=== PATIENT | male | born 1975 | race Two or more races ===

== ENCOUNTER 2025-05-14 10:55 | Outpatient (REF) | payer OTHER, SELFPAY | END 2025-05-14 10:56 | disposition home or self-care (01) | LOC: HO.LAB 10:55 | PROVIDERS: PCP Physician Assistant Medical; Visit Provider Urology | DX: K46.9 Unspecified abdominal hernia without obstruction or gangrene (principal) | CPT/HCPCS: 87086 ==

== ENCOUNTER 2025-05-14 10:55 | Outpatient (AMB) | payer OTHER, SELFPAY ==
--- OUTSIDE RECORDS SUMMARY | 2025-05-12 16:15 | XMS_ITS | Encounter Summary ---
Author Organization [facility] Address [address] [place] [address] Care Team Providers Care Book Store Associate Name Role Phone Refugio Estrella Primary Care Provider [phone] Reason for Referral * Imaging (Routine) - Pending Review Specialty Diagnoses / Procedures Referred By Edwina hwang Referred To Contact Radiology Diagnoses Hernia of fascia Procedures CT Abdomen Pelvis w Contrast Gonzalo Pollock DO [address] [address] Phone: tel: fax: [facility] [address] [place] [address] Phone: tel: Referral ID Status Reason Start Date Expiration Date V isits Requested Visits Authorized [id number] Pending Review 05/12/2025 05/12/2026 1 1 Reason for Visit * Reason Comments Hernia * Consultation (Routine) - Authorized Specialty Diagnoses / Procedures Referred By Edwina hwang Referred To Contact General Surgery Diagnoses Hernia of fascia Refugio Estrella PA [address] [place] [place] [address] Phone: tel: fax: Gonzalo Pollock DO [address] [address] Phone: tel: fax: Referral ID Status Reason Start Date Expiration Date Visits Requested Visits Authorized [id number] Authorized Specialty Services Required 06/11/2024 06/09/2025 6 6 Encounter Details Date Type Department Care Team (Late st Contact Info) Description 05/12/2025 4:15 PM EDT Consult General Surgery - [place] [address] [place] [address] Gonzalo Pollock, DO [address] [place] [address] Hernia of fascia Social History Tobacco Use Types Packs/Day Years Used Date Smoking Tobacco: Former Cigarettes 0.1 9.9 0 10/29/1996 - 09/28/2006 Smokeless Tobacco: Never Alcohol Use Standard Drinks/Week Comments Yes 0 (1 standard drink = 0.6 oz pur e alcohol) occ Housing Instability Answer Date Recorde d Are you worried that in the next 2 months you may not have stable housing? No 02/20/2025 Food Access & Nutrition Answer Date Rec orded Do you have access to a vari ety of food including fruits and vegetables? Yes 02/20/2025 Health Literacy Answer Date Recorded How often do you need to hav e someone help you when you read instructions, pamphlets, or other written material from your doctor or pharmacy? Never 02/20/2025 Caregiver: How often do you need to have someone help you when you read instructions, pamphlets, or other written material from your doctor or pharmacy? Not on file 02/20/2025 Financial Risk Answer Date Recorded How hard is it for you to pa y for the very basics like food, housing, medical care, and air conditioning / heating? Not very hard 02/20/2025 Transportation Answer Date Recorded Has the lack of transportati on kept you from meetings, work, or from getting things needed for daily living? No Has the lack of transportati on kept you from medical appointments or from getting medications? No 02/20/2025 Social Isolation Answer Date Recorded How often do you feel lonely or isolated from th ose around you? Never 02/20/2025 Food Risk Answer Date Recorded Within the past 12 months we worried whether our food would run out before we got money to buy more. Never true 02/20/2025 Within the past 12 months th e food we bought just didn't last and we didn't have money to get more. Never true 02/20/2025 Dependent Care Answer Date Recorded Do you need help finding or paying for care for your loved ones. For example, child care cook or elderly care for an older adult? No 02/20/2025 Employment and Income Answer Date Recor ded During the last four weeks, have you been actively looking for work? No 02/20/2025 Living Situation Answer Date Recorded What is your living situation? 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 Not on file Not on file Not on file documented as of this encounter Last Filed Vital Signs Vital Sign Reading Time Taken Comments Blood Pressure 114/77 05/12/2025 4:03 PM EDT Pulse 85 05/12/2025 4:03 PM EDT Temperature 36.3 C (97.3 F) 05/12/2025 4:03 PM EDT Respiratory Rate - - Oxygen Saturation - - Inhaled Oxygen Concentration - - Weight 115 kg (253 lb) 05/12/2025 4:03 PM EDT Height 170.2 cm (5' 7 ) 05/12/2025 4:03 PM EDT Body Mass Index 39.63 05/12/2025 4:03 PM EDT documented in this encounter Plan of Treatment Upcoming Encounters Date Type Department Care Team (Late st Contact Info) Description 08/18/2025 1:30 PM EDT Consult Bariatric Surgery - [place] [address] [phone] Mikayla Sales PA [address] [address] 08/25/2025 3:30 PM EDT Office Visit Adult Medicine [facility] [address] [place], [place] [phone] Refugio Estrella PA [address] [place] [address] Scheduled Orders Name Type Priority Associated Diagnoses Orde r Schedule CT Abdomen Pelvis w Contrast Imaging Routine Hernia of fascia Expected: 05/12/2025, Expires: 05/12/2026 documented as of this encounter Visit Diagnoses Diagnosis Hernia of fascia Other disorder of muscle, ligament, and fascia documented in this encounter Orders Outpatient Referral Count Last Ordered Date Fir st Ordered Date AMB REFERRAL TO GENERAL SURGERY 1 5 documented in this encounter Additional Health Concerns Assessment Noted Time PHQ-9 Depression Total Score: 0 02/21/20 25 2:59 PM EDT documented as of this encounter Care Teams Book Store Associate Relationship Specialty Start Date End Date Refugio Estrella PA [address] [place] [address] PCP - General Internal Medicine 04/27/20 documented as of this encounter
--- NOTE | 2025-05-13 22:10 | A.OFFVIS_ITS ---
Intake Visit Reasons: second opinion scrotal pain Intake Note: New patient presents today for initial visit for second opinion scrotal pain Urology Medication:None Blood Thinner:None Antibiotic Allergies:None Allergies shellfish derived Allergy (Mild, Verified 05/14/25 11:02) Anaphylaxis shrimp Allergy (Mild, Verified 05/14/25 11:02) Swelling Medication List - Last Reconciled 05/14/25 by Denise Cunningham MD albuterol sulfate 90 mcg/actuation (Ventolin HFA) 2 puffs inhalation Q4-6H PRN escitalopram oxalate 10 mg (2 x 5 mg) PO DAILY levofloxacin 500 mg PO Q24H 10 days loratadine 10 mg PO DAILY HPI Comments Details: 05/14/25-- Enrique is a 49-year-old male who is here with complaints of testicular pain. 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 Since then he has had follow-up ultrasound in was not informed of any abnormalities found in the testicles. Currently it is the right testicle that is bothering him but it has been both at different times. He is also following with the general surgeon who has informed him that he has bilateral inguinal hernias left greater than right and he is scheduled to have a CT of the pelvis Examination today-right testicle is tender to palpation no tenderness along the cord. I will check a testicular ultrasound. Urinalysis is nitrite positive I will send antibiotics to the pharmacy and urine culture will be sent. Follow-up to review ultrasound results. PFSH Medical History Primary insomnia Panic disorder with agoraphobia and mild panic attacks Hyperlipidemia Depression Chronic urticaria Morbid obesity Decreased libido Asthma Appendicitis Anxiety Alcohol abuse Review of Systems Const All systems reviewed & are unremarkable except as noted in HPI and below Reports no additional complaints Eyes Reports no additional complaints ENT Reports no additional complaints Card Reports no additional complaints Resp Reports no additional complaints GI Reports no additional complaints Reports as per HPI Musc Reports no additional complaints Skin/Breast Reports system reviewed and no additional complaints, except as documented Neuro Reports no additional complaints Psych Reports no additional complaints Endo Reports no additional complaints Sg/Lymph Reports no additional complaints Aller/Immun Reports no additional complaints Physical Exam Const General: healthy appearing, no acute distress and well developed Orientation/consciousness: patient oriented x3 HEENT Head: Yes normocephalic and Yes atraumatic Eyes Conjunctivae: conjunctivae normal Neck Neck: Yes normal visual inspection Chest Chest palpation & inspection: normal inspection of the chest Resp Effort & Inspection: normal respiratory effort GI Inspection: Yes normal to inspection Other: right testicle is tender to palpation no tenderness along the cord. Left testicle is not tender to palpation. Scrotum: scrotum normal Neuro General: patient oriented x3 Extrem General: No pedal edema Psych Appearance: grossly normal Affect: normal affect Assessment & Plan Assessment & Plan (1) Pain in both testicles: Code(s): N50.811 - Right testicular pain; N50.812 - Left testicular pain Category: Medical (2) Hernia: Code(s): K46.9 - Unspecified abdominal hernia without obstruction or gangrene Category: Medical Plan Scrotal ultrasound with Doppler. Levaquin initially ordered but pharmacy called stating there is an interaction with 1 of his other medications Augmentin 875 mg b.i.d. for 10 days. Urine culture pending Orders: Orders US scrotum doppler Today K46.9 - Unspecified abdominal hernia without obstruction or gangrene, N50.811 - Right testicular pain, N50.812 - Left testicular pain Medications: New albuterol sulfate 90 mcg/actuation (Ventolin HFA) 2 puffs inhalation Q4-6H PRN 6.7 grams 0RF shortness of breath or wheezing escitalopram oxalate 10 mg (2 x 5 mg) PO DAILY 60 tabs 0RF levofloxacin 500 mg PO Q24H 10 days 10 tabs 0RF Patient Instructions: The patient had an opportunity to ask questions regarding treatment plan. The patient expressed understanding and agreement with the above treatment plan. The patient is aware they should contact our office by phone for worsening of their current condition or the appearance of new symptoms. Compliance is encouraged with any medications and followup testing that is ordered. It is a privilege to be allowed the opportunity to participate in the urologic care of your patient. If you have any questions or concerns regarding treatment for the above conditions please do not hesitate to contact me. The office telephone contact is [phone]. This note is constructed in part using voice recognition software. While every effort has been made to ensure accuracy cabinet assembler errors may have been incl uded. Yours sincerely, Denise Cunningham MD Coding Level of Care Code New Pt Level 4 (76435) Diagnoses Pain in both testicles N50.811; N50.812 Hernia K46.9
--- OUTSIDE RECORDS SUMMARY | 2025-05-14 11:42 | XMS_ITS | Patient Health Record ---
Author Organization [facility] Address [address] [place] [address] Care Team Providers Care Lining Parts Sewer Name Role Phone Juan Luis ISABEL, Vince Primary Care Provider Unavail able Justina Dhaval Unavailable [phone] Allergies Allergen (clinical drug ingredient) Drug/Non Drug Allergy documented on EMR Reaction Allergy Type Onset Date Status Iodine unknown Drug Allergy Active Shrimp Flavor swelling Drug Allergy Act dev Reason For Referral No Information Medications Medication SIG (Take, Route, Fr equency, Duration) Notes Start Date End Date Status Medical From: . . . Work 04/24/19, and 04/25/1903/30 Active Ativan 1mg prn Not-Takin g Physical Therapy . . . 2-3x/week; Durat ion: 3-4 weeks 10/07/2013 Not-Taking Cephalexin 500 MG 1 tablet Orally Twic e a day; Duration: 10 day(s) Active Lexapro 1.5 ml Activ e Albuterol Active Social History Tobacco Use/Smoking Question Answer Notes Additional Findings: Tobacco Non-User Current no n-smoker Tobacco use other than smoking: Question Answer Notes Are you an other tobacco user? No Plan Of Treatment Pending Test Test Name Order Date X ray : Foot, right 3V 09/09/2013 70921 I&D ABSCESS- SIMPLE,SINGLE 019 Insurance Providers Payer Name Payer Address Payer Phone Subscriber Number Group Number Insured Name Patient Relationship to Insured Coverage Start Date Coverage End Date [employer] [place] [address] JULIA Buchanan [phone] [id number] Brent Jaeger Self - patient is the insured Medical (General) History Medical History History ICD Code Arthritis broken bones depression chicken pox Anxiety disorder asthma Back,Hip,and Knee pain Surgical History Surgery Date(Month/Year) shoulder surgery 2006 knee surgery 2009 appendix 2001
== END 2025-05-14 11:39 | disposition home or self-care (01) ==
LOC: HO.HUSH 10:55
PROVIDERS: PCP Physician Assistant Medical; Visit Provider Urology
DX: N50.811 Right testicular pain (principal); N50.812 Left testicular pain; K46.9 Unspecified abdominal hernia without obstruction or gangrene
CPT/HCPCS: 99204

== ENCOUNTER 2025-07-03 15:44 | Outpatient (REF) | payer OTHER, SELFPAY ==
--- NOTE | ~2025-07-03 | US_ITS ---
EXAMINATION: US SCROTUM CLINICAL INFORMATION: Right testicular pain COMPARISON: None available. TECHNIQUE: A sonogram of the scrotum was performed assessing zepeda-scale appearance and color Doppler flow. Spectral Doppler analysis of the arterial and venous flow were performed in the testes bilaterally. FINDINGS: RIGHT: Right testicle measures 4.3 x 3 2.0 x 2.9 cm, volume 13 mL. No focal testicular parenchymal lesions are visualized. Spectral Doppler analysis of the arterial and venous flow is normal in the right testis. Incidental finding of right rete testis. Right epididymal head is normal in size. There is a small) epididymal head cysts measuring 0.2 x 0.14 x 0.2 cm No right hydrocele or varicocele is seen. Right epididymal Doppler flow is normal. LEFT: Left testicle measures 3.8 x 2.1 x 2.9 cm, volume 12 mL. No focal testicular parenchymal lesions are visualized. Spectral Doppler analysis of the arterial and venous flow is normal in the left testis. Left epididymal head is normal in size. No left hydrocele. Prominent left dilated scrotal vessels question varicocele Left epididymal Doppler flow is normal. US/US scrotum doppler IMPRESSION: Small right epididymal head cyst. Question left varicocele. Electronically signed by: Mark Chery MD 07/06/2025 06:56 AM EDT
--- OUTSIDE RECORDS SUMMARY | 2025-07-03 13:30 | XMS_ITS | Encounter Summary ---
Author Organization [facility] Address [address] [place] [address] Care Team Providers Care Sole Molder Name Role Phone Refugio Estrella Primary Care Provider [phone] Reason for Referral * Imaging (Routine) - Pending Review Specialty Diagnoses / Procedures Referred By Ediwna hwang Referred To Contact Cardiology Diagnoses Routine general medical examination at a health care facility Morbid obesity (CMS/HCC V24, CMS/HCC V28) Other depression Anxiety Other hyperlipidemia Panic disorder with agoraphobia and mild panic attacks Vasovagal syncope Procedures Transthoracic echocardiogram (TTE) complete with PRN contrast, bubble, strain, and 3D order panel WI TTE W 2D IMAGE COMPLETE W DOPPLER ECHO & COLOR FLOW DOPPLER ECHO WI JOAQUIN 2D COMPLETE W/CONTRAST OR W & WO CONTRAST WITH DOPPLER Refugio Estrella PA [address] [place] [address] Phone: tel: fax: [facility] Referral ID Status Reason Start Date Expiration Date V isits Requested Visits Authorized [id number] Pending Review 07/03/2025 07/03/2026 1 1 Reason for Visit * Reason Comments Follow-up Encounter Details Date Type Department Care Team (Latest Contact Info) Description 07/03/2025 1:30 PM EDT Office Visit Adult Medicine [address] [address] Refugio Estrella PA [address] [place] [address] Other hyperlipidemia (Primary Dx); Routine general medical examination at a health care facility; Morbid obesity ([facility] V24, [facility] V28); Other depression; Anxiety; Panic disorder with agoraphobia and mild panic attacks; Vasovagal syncope Social History Tobacco Use Types Packs/Day Years Used Date Smoking Tobacco: Former Cigarettes 0.1 9.9 0 10/29/1996 - 09/28/2006 Smokeless Tobacco: Never Tobacco Cessation:Counseling Given: Not Answered Alcohol Use Standard Drinks/Week Comments Yes 0 [...] care for your loved ones. For example, early childhood educator aide or elderly care for an older adult? 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 Not on file Not on file documented as of this encounter Last Filed Vital Signs Vital Sign Reading Time Taken Comments Blood Pressure 111/78 07/03/2025 1:24 PM EDT Pulse 73 07/03/2025 1:24 PM EDT Temperature 36.3 C (97.3 F) 07/03/2025 1:24 PM EDT Respiratory Rate 16 07/03/2025 1:24 PM EDT Oxygen Saturation 96% 07/03/2025 1:24 PM EDT Inhaled Oxygen Concentration - - Weight 114 kg (251 lb 6.4 oz) 07/03/2025 1:24 PM EDT Height 170.2 cm (5' 7 ) 07/03/2025 1:24 PM EDT Body Mass Index 39.37 07/03/2025 1:24 PM EDT documented in this encounter Ordered Prescriptions Prescription Sig Dispense Quantity Refills Last Filled Start Date End Date phentermine 30 mg capsuleIndications :Routine general medical examination at a health care facility,Morbid obesity (CMS/HCC V24, CMS/HCC V28),Other depression,Anxiety ,Other hyperlipidemia,Dinae ic disorder with agoraphobia and mild panic attacks,Vasovagal syncope Take 1 capsule (30 mg total) by mouth 1 (one) time each day before breakfast. Max Daily Amount: 30 mg 30 each 2 07/03/2025 documented in this encounter Progress Notes * DANYELLE Mtaa - 07/03/2025 1:30 PM EDT CHIEF COMPLAINT: Follow-up IDENTIFIER: Brent Jaeger is a 50 y.o. old male. HPI: This pleasant patient presents today for follow-up. 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 He would like to try the higher dose of phentermine for weight loss which I think is reasonable. Also still having occasional fainting episodes associated with coughing. I am thinking this is probably vasovagal syncope but I do feel that we should follow through with the echocardiogram I did order a stress echocardiogram but unfortunately this was denied by insurance ROS: GENERAL: Negative for malaise, significant weight loss and fever RESPIRATORY: No cough, wheezing or shortness of breath CARDIOVASCULAR: Negative for chest pain, leg swelling and palpitations ENDOCRINE: Negative for cold or heat intolerance, polyuria, polydipsia and goiter NEURO: See HPI PAST MEDICAL HISTORY: Patient Active Problem List Diagnosis Date Noted Abnormal EKG 06/23/2022 Atypical chest pain 06/23/2022 Primary insomnia 05/25/2020 Alcohol abuse 03/15/2020 Anxiety 03/28/2019 Depression 03/05/2019 Morbid obesity ([facility] V24, [facility] V28) 03/05/2019 Chronic urticaria 08/23/2017 Hyperlipidemia 05/28/2015 Panic disorder with agoraphobia and mild panic attacks 07/07/2011 Asthma 07/31/2008 Appendicitis 12/06/2005 Past Surgical History: Procedure Laterality Date APPENDECTOMY 10/29/2001 PROCEDURE: WI APPENDECTOMY; COMMENT: status post ruptured appendix COLONOSCOPY 02/07/2024 PROCEDURE: HISTORICAL COLONOSCOPY; COMMENT: jillian Oconnor polyp KNEE SURGERY Left PROCEDURE: HISTORICAL KNEE SURGERY; COMMENT: scope l knee OTHER SURGICAL HISTORY 10/29/1995 PROCEDURE: EXCISION BENIGN LESION COMPL; COMMENT: neck OTHER SURGICAL HISTORY 10/29/1999 PROCEDURE: WI CIRCUMCISION AGE >28 DAYS SHOULDER SURGERY Bilateral PROCEDURE: HISTORICAL SHOULDER SURGERY TONSILLECTOMY PROCEDURE: HISTORICAL TONSILLECTOMY SOCIAL HISTORY: Social History Tobacco Use Smoking status: Former Current packs/day: 0.00 Average packs/day: 0.1 packs/day for 9.9 years (1.0 ttl pk-yrs) Types: Cigarettes Start date: 10/29/1996 Quit date: 09/28/2006 Years since quittin.7 Smokeless tobacco: Never Substance Use Topics Alcohol use: Yes Comment: occ FAMILY HISTORY: Family History Problem Relation Name Age of Onset Diabetes Mother Diabetes Maternal Grandmother Other (Other: unknown) Father Family Status Relation Name Status Mother Alive MGM (Not Specified) Father Alive No partnership data on file MEDICATIONS DISCONTINUED/REORDERED: Medications Discontinued During This Encounter Medication Reason furosemide (LASIX) 20 mg tablet Patient Discharge semaglutide (Wegovy) 0.25 mg/0.5 mL injection pen Patient Discharge phentermine 15 mg capsule ACTIVE MEDICATIONS: Outpatient Medications Marked as Taking for the 07/03/25 encounter (Office Visit) with DANYELLE Mata Medication Sig Dispense Refill albuterol HFA (ProAir HFA) 90 mcg/actuation inhaler Inhale 2 Puffs into the lungs every 4 hours as needed for Cough or Wheezing. 6.7 g 3 EPINEPHrine (Auvi-Q) 0.3 mg/0.3 mL injection Inject 1 Device as directed as needed (ANAPHYLAXIS). escitalopram (LEXAPRO) 10 mg tablet TAKE 1 TABLET BY MOUTH DAILY. ALONG WITH A 5 MG TAB FOR A TOTALOF 15 MG DAILY 90 tablet 3 escitalopram (LEXAPRO) 5 mg tablet TAKE 1 TABLET BY MOUTH DAILY. ALONG WITH A 10 MG TAB FOR A TOTALOF 15 MG DAILY 90 tablet 3 loratadine (CLARITIN) 10 mg tablet TAKE 1 TABLET BY MOUTH EVERY DAY NOT COVERED ALLERGIES: Allergies Allergen Reactions Shellfish Derived Anaphylaxis Other Reaction(s): Hives/Urticaria Shrimp Swelling Swell up 1993 PHYSICAL EXAM: Visit Vitals BP 111/78 Pulse 73 Temp 36.3 ??C (97.3 ??F) (Temporal) Resp 16 Ht 1.702 m (67 ) Wt 114 kg (251 lb 6.4 oz) SpO2 96% BMI 39.37 kg/m?? Smoking Status Former BSA 2.23 m?? General appearance: alert and oriented, in no acute distress Lungs: clear to auscultation bilaterally Heart: regular rate and rhythm, S1, S2 normal, no murmur, click, rub or gallop Extremities: extremities normal, warm and well-perfused; no cyanosis, clubbing, or edema Neurologic: Grossly normal LABS/IMAGING: Labs Echocardiogram IMPRESSION: 1. Other hyperlipidemia 2. Routine general medical examination at a health care facility 3. Morbid obesity (CMS/HCC V24, CMS/HCC V28) 4. Other depression 5. Anxiety 6. Panic disorder with agoraphobia and mild panic attacks 7. Vasovagal syncope PLAN: 1. History of syncope likely vasovagal however I do think we should get an echocardiogram as well which I did order again. 2. I did fill out his paperwork I have no objections to his work physical. 3. Obesity discussed diet exercise and weight loss will try the higher dose of phentermine. 4. Depression anxiety stable. 5. Will recheck testosterone levels I have applied the code G2211 to this patient???s visit as the primary care provider dealing with (list the condition that is/are complex) leading to the extensive work up, and management associated with the medical care of this patient. This patient???s serious conditions and complex medical conditions also required several consultants needing management and coordination through my office. I have reviewed all information as it pertains to the management of this patient for final approval. Advised the patient to call me if any problems. Patient understands the plan. Patient is in agreement with the plan. documented in this encounter Plan of Treatment Upcoming Encounters Date Type Department Care Team (Late st Contact Info) Description 08/18/2025 1:30 PM EDT Consult Bariatric Surgery - [address] [place] [address] Mikayla Sales PA [address] [place] [phone] 08/25/2025 3:30 PM EDT Office Visit Adult Medicine [address] [address] Refugio Estrella PA [address] [place] [address] Scheduled Orders Name Type Priority Associated Diagnoses Order Schedule Transthoracic echocardiogram (TTE) complete with PRN contrast, bubble, strain, and 3D order panel Echocardiography Routine Routine general medical examination at a health care facility Morbid obesity (CMS/HCC V24, CMS/HCC V28) Other depression Anxiety Other hyperlipidemia Panic disorder with agoraphobia and mild panic attacks Vasovagal syncope 1 Occurrences starting 07/03/2025 until 07/03/2026 documented as of this encounter Visit Diagnoses Diagnosis Other hyperlipidemia- Primary Routine general medical examination at a [facility] care facility Morbid obesity ([facility] V24, [facility] V28) Morbid obesity Other depression Anxiety Anxiety state, unspecified Panic disorder with agoraphobia and mild panic attacks Agoraphobia with panic disorder Vasovagal syncope Syncope and collapse documented in this encounter Discontinued Medications Medication Sig Discontinue Reason Start Date End Da te furosemide (LASIX) 20 mg tablet Take 1 tablet (20 mg total) by mouth 1 (one) time each day if needed (leg swelling). Patient Discharge 03/19/2025 07/03/2025 semaglutide (Wegovy) 0.25 mg/0.5 mL injection pen Inject 0.25 mg under the skin every 7 (seven) days. BMI 41.19 Patient Discharge 03/02/2025 07/03/2025 phentermine 15 mg capsule Take 1 capsule (15 mg total) by mouth 1 (one) time each day before breakfast. Max Daily Amount: 15 mg 06/12/2025 07/03/2025 documented as of this encounter Additional Health Concerns Assessment Noted Time PHQ-9 Depression Total Score: 0 02/21/20 25 2:59 PM EDT documented as of this encounter Care Teams Sole Molder Relationship Specialty Start Date End Date Refugio Estrella PA [address] [place] [address] PCP - General Internal Medicine 04/27/20 documented as of this encounter
--- OUTSIDE RECORDS SUMMARY | 2025-07-03 15:47 | XMS_ITS | Encounter Summary ---
Author Organization [facility] Address [address] [place] [address] Care Team Providers Care Equipment Maint Tech Name Role Phone Refugoi Estrella Primary Care Provider [phone] Reason for Visit * Reason Onset Date Comments Forms/questionnaires 06/30/2025 Encounter Details Date Type Department Care Team ([facility] st Contact Info) Description 06/30/2025 Telephone General Surgery - [place] 175 [facility] [address] [place] [phone] Gonzalo De La Cruz, DO 175 [facility] [address] [place] [address] Social History Tobacco Use Types Packs/Day Years [...] your loved ones. For example, child care leader or elderly care for an older adult? 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 DE LA CRUZ KNOW THAT THE INSURANCE DENIED THE CT. SO SHE WANTS TO KNOW WHAT SHOULD BE DONE NOW. documented in this encounter Plan of Treatment Upcoming Encounters Date Type Department Care Team (Late st Contact Info) Description 08/18/2025 1:30 PM EDT Consult Bariatric Surgery - [place] [address] [facility] [address] [place] [phone] Mikayla Sales PA [address] [place] [phone] 08/25/2025 3:30 PM EDT Office Visit Adult Medicine [facility] [address] [place] [address] Refugio Estrella PA [address] [place] [phone] documented as of this encounter Visit Diagnoses Not on filedocumented in this encounter Additional Health Concerns Assessment Noted Time PHQ-9 Depression Total Score: 0 02/21/20 25 2:59 PM EDT documented as of this encounter Care Teams Equipment Maint Tech Relationship Specialty Start Date End Date Refugio Estrella PA [address] [place] [address] PCP - General Internal Medicine 04/27/20 documented as of this encounter
--- OUTSIDE RECORDS SUMMARY | 2025-07-03 15:47 | XMS_ITS | Encounter Summary ---
Author Organization [facility] Address [address] [address] Phone Care Team Providers Care Grain Loader Name Role Phone Refugio Estrella Primary Care Provid er Reason for Referral * Physical Therapy (Within 3 days (urgent)) - Closed Specialty Diagnoses / Procedures Referred By Edwina hwang Referred To Contact Physical Therapy Diagnoses Encounter for rehabilitation M75.122 Nontraumatic complete tear of left rotator cuff Procedures evaluate & treat Toño Contreras MD [address] [place] [address] Phone: tel: fax: [facility] [address] [place] [address] Phone: tel: Referral ID Status Reason Start Date Expiration Date Visits Re quested Visits Authorized [id number] Closed 08/11/2021 11/23/2021 26 26 Encounter Details Date Type Department Care Team (Latest Contact Info) Description 07/21/2021 Transcribe Orders [facility] [address] [place] [address] Toño Contreras MD [address] [place] [id number] Encounter for rehabilitation (Primary Dx) Social History Tobacco Use Types Packs/Day Years Used Date Smoking Tobacco: Never Assessed Sex and Gender Information Value Date Recorded Sex Assigned at Male 05/24/2023 6:50 PM EDT Legal Sex Male 9:26 PM EDT Gender Identity Male 05/24/2023 6:50 PM EDT Sexual Orientation Straight 05/24/2023 6: 50 PM EDT documented as of this encounter Plan of Treatment Not on file documented as of this encounter Procedures Procedure Name Priority Date/Time Associated Diagnosis Comments AMB REFERRAL TO [facility] PHYSICAL THERAPY Routine 08/17/2021 12:57 PM EDT Encounter for rehabilitation documented in this encounter Results * Ambulatory referral to [facility] Physical Therapy (08/17/2021 12:57 PM EDT) Other us Toño Contreras MD AMB [facility] REFERRALS Final R esult documented in this encounter Visit Diagnoses Diagnosis Encounter for rehabilitation- Primary documented in this encounter Additional Health Concerns Infection Onset Date Last Indicated Resolved Time CoV-Risk 09/14/2022 09/14/2022 09/25/2022 1:22 AM EST CoV-Risk Comment:Per note documentation 05/24/2023 05/24/2023 8:26 AM EDT documented as of this encounter Care Teams Grain Loader Relationship Specialty Start Date End Date Refugio Estrella PA [address] [place] [address] PCP - General Unknown Provider Specialty 07/15/21 documented as of this encounter Additional Source Comments The information contained in this document represents components of the legal health record. It is not the complete legal health record.[facility]
--- OUTSIDE RECORDS SUMMARY | 2025-07-03 15:47 | XMS_ITS | Clinical Summary ---
Author Organization [facility] Address [address] [address] Phone Care Team Providers Care Case Picker Name Role Phone Refugio Estrella Primary Care Provid er Allergies No known active allergies Medications escitalopram oxalate (LEXAPRO) 10 MG tablet Take 15 mg by mouth daily. 2 Active loratadine (CLARITIN) 10 mg tablet Take 10 mg by mouth daily. 2 Active albuterol 90 mcg/actuation inhaler Inhale 2 puffs into the lungs every 4 (four) hours as needed for wheezing or shortness of breath/dyspnea . 3 Active ibuprofen (ADVIL,MOTRIN) 400 MG tablet Take 1 tablet (400 mg total) by mouth every 8 (eight) hours as needed for pain (specific location in comments) or fever. 3 Active Active Problems Problem Noted Date Diagnosed Date Severe sepsis 05/25/2023 Assessment & Plan (05/27/2023 9:31 AM EDT): Patient had presented with fever and clinical signs of sepsis with tachycardia, tachypnea, high fever and lactic acidosis Influenza and COVID swabs negative. Blood cultures NGTD. UA negative. Chest x- ray unremarkable. CT abdomen/pelvis unremarkable. Presentation suspicious for tickborne infection. He has a mild transaminitis that was felt to be initially related to systemic illness. Lyme screen negative. Heterophile AB non-reactive. Ehrlichia/Anaplasma smear negative. --- Continue ceftriaxone/Doxycyline empirically -- Anaplasma/Ehrlichia PCR negative. Babesia PCR pending -- We will continue to monitor clinically. He does seem to be improving and reports feeling better. His fever curve is down trending. --follow up blood cultures to final. Anxiety disorder 05/25/2023 Assessment & Plan (05/26/2023 8:15 AM EDT): We will continue with Lexapro 15 mg po daily Transaminitis 05/25/2023 Assessment & Plan (05/27/2023 9:32 AM EDT): Transaminase levels elevated in a hepatotoxic pattern. Initially this was surmised that this is due to sepsis and/or tickborne illness. LFT's on 05/27 are higher than prior two days. Will check hepatitis A/B/C titers. Check abdominal US. He denies any abdominal pain. Social History Tobacco Use Types Packs/Day Years Used Date Smoking Tobacco: Never Smokeless Tobacco: Never Alcohol Use Standard Drinks/Week Comments Yes 0 (1 standard drink = 0.6 oz pur e alcohol) Education Answer Date Recorded Are you interested in more education? Not on cholo e 02/23/2023 Are you concerned about learning? Not on file 02/23/2023 No 02/23/2023 No 02/23/2023 Digital Access Answer Date Recorded No 03/26/2023 No 03/26/2023 Reliable internet access at home? Not on file 03/26/2023 Device with a working camera? Not on file Intimate Partner Violence Answer Date R ecorded Are you denied basic needs s uch as food, clothing, or medical care? No 09/05/2023 In the past 12 months have y ou been in a relationship with a person who hurts, threatens, or tries to control you? No 09/05/2023 Are you denied basic needs s uch as food, clothing, or medical care? No 09/05/2023 In the past 12 months have y ou been in a relationship with a person who hurts, threatens, or tries to control you? No 09/05/2023 Sex and Gender Information Value Date Recorded Sex Assigned at Male 05/24/2023 6:50 PM EDT Legal Sex Male 9:26 PM EDT Gender Identity Male 05/24/2023 6:50 PM EDT Sexual Orientation Straight 05/24/2023 6: 50 PM EDT Last Filed Vital Signs Vital Sign Reading Time Taken Comments Blood Pressure 126/89 09/05/2023 9:26 PM EST Pulse 73 09/05/2023 9:26 PM EST Temperature 36.3 C (97.3 F) 09/05/2023 9:26 PM EST Respiratory Rate 18 09/05/2023 9:26 PM EST Oxygen Saturation 96% 09/05/2023 9:26 PM EST Inhaled Oxygen Concentration - - Weight 112.5 kg (248 lb) 05/25/2023 1:21 AM EDT Height 170.2 cm (5' 7 ) 05/25/2023 1:21 AM EDT Body Mass Index 38.84 05/25/2023 1:21 AM EDT Plan of Treatment Health Maintenance Due Date Last Done Comments Adult Td,Tdap Booster 1977 LIPID PANEL 1977 DEPRESSION SCREENING 1989 HIV ONE-TIME SCREENING (18-65 YEARS) 1995 COLOGUARD 2022 COLONOSCOPY 2022 COLORECTAL CANCER SCREENING 2022 FIT TEST 2022 FOBT 2022 SIGMOIDOSCOPY 2022 VIRTUAL COLONOSCOPY 2022 INFLUENZA VACCINE (#1) 2025 08/27/2020, 2017 COVID-19 VACCINE ( season) 2025 08/25/2022, 11/05/2021, 12/03/2020, Additional history exists SCREENING FOR DIABETES 05/28/2026 05/28/2023 SMOKING STATUS SCREENING (Once After 26 Yrs) Completed 09/14/2022 HEPATITIS C SCREENING Completed 02/06/2024 , 02/06/2024, 05/28/2023 HEPATITIS A VACCINES Aged Out No long er eligible based on patient's age to complete this topic HIB VACCINES Aged Out No longer eligi ble based on patient's age to complete this topic MENINGOCOCCAL VACCINES (ACWY) Aged Out No longer eligible based on patient's age to complete this topic MENINGOCOCCAL VACCINES (B) Aged Out N o longer eligible based on patient's age to complete this topic PNEUMOCOCCAL VACCINES (0-49 years) Aged Out No longer eligible based on patient's age to complete this topic Medical Devices Not on file Procedures Procedure Name Priority Date/Time Associated Diagnosis Comments HEPATITIS C ANTIBODY, QUALITATIVE Routine 02/06/2024 5:16 PM EDT Elevated LFTs from Last 3 Months or Most Recently Relevant to Health Maintenance Results * Hepatitis C antibody, qualitative (02/06/2024 5:16 PM EDT) HCV NON-REACTIV E NON-REACTI VE [facility] Blood 02/06/2024 5:16 PM EDT 02/06/2024 5:19 PM EDT us Brent Carmona MD LAB BLOOD ORDERABLES Final Res ult Performing Organization Address City/State/RUST Co de Phone Number [facility] [address] [place] [address] from Last 3 Months or Most Recently Relevant to Health Maintenance Insurance [facility] EXPL[employer]ER POS HEALTH SAFETY NET PARTIAL [employer] EXPLORER POS HEALTH [facility] PARTIAL [facility] EXPLORER POS HPHC EXPLORER POS HC EXPLORER POS HEALTH SAFETY NET PARTIAL HC EXPLORER POS [facility] EXPLORER POS HEALTH SAFETY NET PARTIAL [facility] EXPLORER POS HEALTH SAFETY NET PARTIAL [facility] EXPLORER POS [facility] SAFETY NET PARTIAL Advance Directives For more information, please contact: [phone] (9AM - 5PM [facility], Sunday-Sunday) * Full Code (Latest Code Status on File) Date Activated Date Inactivated Comments 05/25/2023 1:20 AM Question Answer Comments Code Status Confirmed With: Patient Care Teams Case Picker Relationship Specialty Start Date End Date Refugio Estrella PA [address] [place] [address] PCP - General Unknown Provider Specialty 07/15/21 Additional Source Comments The information contained in this document represents components of the legal health record. It is not the complete legal health record.[facility]
--- OUTSIDE RECORDS SUMMARY | 2025-07-03 15:47 | XMS_ITS | Patient Health Record ---
[facility] Address [address] [place] [address] Care Team Providers Care Assistant Signal Maintainer Name Role Phone Juan Luis ISABEL, Vince Primary Care Provider Unavail able Justina Dhaval Unavailable [phone] Allergies Allergen (clinical drug ingredient) Drug/Non Drug [...] X ray : Foot, right 3V 09/09/2013 [id number] I&D ABSCESS- SIMPLE,SINGLE 019 Insurance Providers Payer Name Payer Address Payer Phone Subscriber Number Group Number Insured Name Patient Relationship to Insured Coverage Start Date Coverage End Date [employer] [place] [address] JULIA Buchanan [phone] [id number] Brent Jaeger Self - patient is the insured Medical (General) History Medical History History ICD Code Arthritis broken bones depression chicken pox Anxiety disorder asthma Back,Hip,and Knee pain Surgical History Surgery Date(Month/Year) shoulder surgery 2006 knee surgery 2009 appendix 2001
--- OUTSIDE RECORDS SUMMARY | 2025-07-03 15:47 | XMS_ITS | Clinical Summary ---
Author Organization [facility] Address [address] [place] [address] Phone Care Team Providers Care Metal Casket Assembler Name Role Phone Refugio Estrella Primary Care Provider [phone] Allergies Active Allergy Reactions Criticality Noted Date Comments Shellfish Derived Anaphylaxis High 08/09/2018 Other Reaction(s): Hives/Urticaria Shrimp Swelling 11/29/2012 Swell up 1993 Medications loratadine (CLARITIN) 10 mg tablet TAKE 1 TABLET BY MOUTH EVERY DAY NOT COVERED 07/07/20 24 Active EPINEPHrine (Auvi-Q) 0.3 mg/0.3 mL injection Inject 1 Device as directed as needed (ANAPHYLAXIS ). 08/23/20 17 Active escitalopram (LEXAPRO) 5 mg tablet TAKE 1 TABLET BY MOUTH DAILY. ALONG WITH A 10 MG TAB FOR A TOTAL OF 15 MG DAILY 90 tablet 3 02/05/20 25 Active escitalopram (LEXAPRO) 10 mg tablet TAKE 1 TABLET BY MOUTH DAILY. ALONG WITH A 5 MG TAB FOR A TOTAL OF 15 MG DAILY 90 tablet 3 02/05/20 25 Active albuterol HFA (ProAir HFA) 90 mcg/actuation inhaler Inhale 2 Puffs into the lungs every 4 hours as needed for Cough or Wheezing. 6.7 g 3 02/21/20 25 Active phentermine 30 mg capsuleIndicati ons:Routine general medical examination at a health care facility,Morbid obesity (CMS/HCC V24, CMS/HCC V28),Other depression,Anxi ety,Other hyperlipidemia, Panic disorder with agoraphobia and mild panic attacks,Vasovag al syncope Take 1 capsule (30 mg total) by mouth 1 (one) time each day before breakfast. Max Daily Amount: 30 mg 30 each 2 07/03/20 25 Active semaglutide (Wegovy) 0.25 mg/0.5 mL injection pen Inject 0.25 mg under the skin every 7 (seven) days. BMI 41.19 6 mL 3 03/02/20 25 025 Discontinued(Pa tient Discharge) furosemide (LASIX) 20 mg tablet Take 1 tablet (20 mg total) by mouth 1 (one) time each day if needed (leg swelling). 30 each 5 03/19/20 25 025 Discontinued(Pa tient Discharge) phentermine 15 mg capsule Take 1 capsule (15 mg total) by mouth 1 (one) time each day before breakfast. Max Daily Amount: 15 mg 30 each 06/12/20 25 025 Discontinued Active Problems Problem Noted Date Diagnosed Date Abnormal EKG 06/23/2022 Atypical chest pain 06/23/2022 Overview (09/24/2024): Acute Last Assessment & Plan: Chest pains atypical. I feel the discomfort could be related to heavy alcohol drink. Could develop gastritis. He has quit alcohol for past 3 months and is doing well. He will resume exercise. I reviewed echocardiogram. Due to his body size, assessing right ventricular size can be a challenge due to foreshortened image. The right ventricle could be just normal in size or mildly dilated. Sometimes, obese patient could develop mild RV enlargement. He is due to have a sleep study. Hopeful he will lose weight back to his ideal body weight. Could consider to repeat echocardiogram in few years. Primary insomnia 05/25/2020 Alcohol abuse 03/15/2020 Anxiety 03/28/2019 Depression 03/05/2019 Morbid obesity (CMS/[facility] V24, CMS/[facility]ER[facility] V28) 2018 Chronic urticaria 08/23/2017 Hyperlipidemia 05/28/2015 Overview (09/24/2024): LDL cholesterol 282, 11/26/2007 Panic disorder with agoraphobia and mild panic a ttacks 07/07/2011 Asthma 07/31/2008 Appendicitis 12/06/2005 Overview (09/24/2024): IMO update Encounters Date Type Department Care Team Description 07/03/2025 1:30 PM EDT Office Visit Adult Medicine [address] [phone] Refugio Estrella, DANYELLE Other hyperlipidemia (Primary Dx); Routine general medical examination at a health care facility; Morbid obesity (CMS/HCC V24, CMS/HCC V28); Other depression; Anxiety; Panic disorder with agoraphobia and mild panic attacks; Vasovagal syncope 06/30/[address] [facility] [address] [phone] Gonzalo Pollock DO 05/12/2025 4:15 PM EDT Consult General Surgery [facility] 175 [facility] [address] [place] [address] Gonzalo Pollock, DO Generalized abdominal pain (Primary Dx); Hernia of fascia from Last 3 Months Immunizations Name Administration Dates Next Due Diptheria & Tetanus, 6wks to less than 7yo 10/29 H1N1 Inj Preservative Free 10/01/2009 Influenza Quadravalent, MDCK , 0.5ml, preservative free (Flucelvax) 6mo and older 07/06/2023 Influenza trivalent, 0.5mL, preservative free (Fluarix; FluLaval; Fluzone) ages 6mo and older (Afluria) 3 years and older 07/28/2024,07/12/2018,10/01/2009 Influenza, Unspecified 08/29/2020 Moderna (age 6mo & older) Bi valent, COVID-19, 0.5 mL or 0.25 mL dosage 08/25/2022 Pfizer (ages 12 & older) Bivalent, COVID-19 07/30 Pneumococcal polysaccharide 23 valent (Pneumovax 23) 2yo and older 05/22/2017 Td Tetanus diptheria (Tdvax) 7yo and older 03/07 Tdap Tetanus diptheria acell ular pertussis (Boostrix; Adacel) 7yo and older 01/03/2023,11/29/2012 Surgical History Surgery Date Site/Laterality Comments APPENDECTOMY 10/29/2001 PROCEDURE: DC APPENDECTOMY; COMMENT: status post ruptured appendix TONSILLECTOMY PROCEDURE: HISTORICAL TONSILLECTOMY OTHER SURGICAL HISTORY 10/29/1995 PROCEDURE: EXCISION BENIGN LESION COMPL; COMMENT: neck OTHER SURGICAL HISTORY 10/29/1999 PROCEDURE: DC CIRCUMCISION AGE >28 DAYS KNEE SURGERY Left PROCEDURE: HISTORICAL KNEE SURGERY; COMMENT: scope l knee SHOULDER SURGERY Bilateral PROCEDURE: HISTORICAL SHOULDER SURGERY COLONOSCOPY 02/07/2024 PROCEDURE: HISTORICAL COLONOSCOPY; COMMENT: jillian 1 polyp Medical History Medical History Date Comments Other tenosynovitis of hand and wrist 2002 DX:Other tenosynovitis of hand and wrist Cellulitis and abscess of to e, unspecified 2002 DX:Cellulitis and abscess of toe, unspecified Disorders of bursae and tend ons in shoulder region, unspecified 2004 DX:Disorders of bursae an d tendons in shoulder region, unspecified Infective otitis externa, unspecified DX:Infective otitis externa, unspecified Appendicitis, unqualified 12/06/2005 DX:Shobha endicitis, unqualified Chronic urticaria 08/23/2017 DX:Chronic urt icaria Family History Medical History Relation Name Comments Other: unknown Father Diabetes Maternal Grandmother Diabetes Mother Relation Name Status Comments Father Alive Maternal Grandmother Mother Alive Social History Tobacco Use Types Packs/Day Years [...] for your loved ones. For example, child neurologist or elderly care for an older adult? 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 Not on file Not on file Obstetrics History Last Filed Vital Signs Vital Sign Reading [...] Mass Index 39.37 07/03/2025 1:24 PM EDT Plan of Treatment Upcoming Encounters Date Type Department Care Team (Late st Contact Info) Description 08/18/2025 1:30 PM EDT Consult Bariatric Surgery - [place] [address] [facility] [address] [place] [address] Mikayla Sales PA [address] [place] [phone] 08/25/2025 3:30 PM EDT Office Visit Adult Medicine [address] [phone] Refugio Estrella PA [address] [place] [address] Health Maintenance Due Date Last Done Comments Hepatitis A Vaccines (1 of 2 - Risk 2-dose series) 1996 Hepatitis B Vaccines (1 of 3 - 19+ 3-dose series) 1996 Pneumococcal Vaccine: Pediatrics (0 to 5 Years) and At-Risk Patients (6 to 49 Years) (2 of 2 - PCV) 05/22/2018 05/22/2017 COVID-19 Vaccine ( season) 2025 08/25/2022, 08/25/2022, 11/05/2021, Additional history exists Influenza Vaccine (#1) 2025 , 07/06/2023, 08/29/2020, Additional history exists Social Influencers of Health Screening 02/20/2026 02/20/2025 Cholesterol Screening (Lipid Panel) 02/20/2030 02/20/2025, 07/06/2023 DTaP,Tdap,and Td Vaccines (5 - Td or Tdap) 01/03/2033 01/03/2023, 11/29/2012, 03/07/2006, Additional history exists Colorectal Cancer Screening: Colonoscopy 02/06/2034 02/07/2024 HIV Screening Completed 11/07/2023 Hepatitis C Screening Completed 02/06/2024, 024 Depression Screening Completed 02/20/2025 HIB Vaccines Aged Out No longer eligi ble based on patient's age to complete this topic HPV Vaccines Aged Out No longer eligi ble based on patient's age to complete this topic IPV Vaccines Aged Out No longer eligi ble based on patient's age to complete this topic MMR Vaccines Aged Out No longer eligi ble based on patient's age to complete this topic Meningococcal ACWY Vaccine Aged Out N o longer eligible based on patient's age to complete this topic Meningococcal B Vaccine Aged Out No l onger eligible based on patient's age to complete this topic RSV Immunization Patients Under 20 months Aged Out No longer eligible based on patient's age to complete this topic Varicella Vaccines Aged Out No longer eligible based on patient's age to complete this topic Procedures Procedure Name Priority Date/Time Associated Diagnosis Comments EXTERNAL CLINICAL LAB 05/14/2025 LIPID PANEL WITH REFLEX TO DIRECT LDL Routine 02/20/2025 4:04 PM EDT Routine general medical examination at a [facility] care facility Syncope, unspecified syncope type Other hyperlipidemia Other depression Uncomplicated asthma, unspecified asthma severity, unspecified whether persistent Obesity without serious comorbidity, unspecified class, unspecified obesity type EXTERNAL COLONOSCOPY REPORT Routine 02/07/2024 12:00 AM EDT HEPATITIS C SCREENING Routine 11/07/2023 HIV SCREENING Routine 11/07/2023 from Last 3 Months or Most Recently Relevant to Health Maintenance Results * External clinical lab (05/14/2025) Provider [facility] LAB BLOOD ORDERABLES Fin al Result * (ABNORMAL) Lipid panel with reflex to direct LDL (02/20/2025 4:04 PM EDT) Cholesterol 172 0 - 200 mg/dL LAB CHEMISTRY METHOD 02/20/2025 6:[address] [facility] Triglycerides 327(H) 0 - 150 mg/dL LAB CHEMISTRY METHOD 02/20/2025 6:[address] [facility] HDL 47 >=40 mg/dL LAB CHEMISTRY METHOD 02/20/2025 6:[address] [facility] LDL Calculated 60 0 - 100 mg/dL LAB CHEMISTRY METHOD 02/20/2025 6:[address] [facility] VLDL Cholesterol Donte 65.4 mg/dL LAB CHEMISTRY METHOD 02/20/2025 6:[address] [facility] Non HDL Chol. (LDL+VLDL) 125 <145 mg/dL LAB CHEMISTRY METHOD 02/20/2025 6:[address] [facility] Chol/HDL Ratio 3.7 0.0 - 4.4 LAB CHEMISTRY METHOD 02/20/2025 6:[address] [facility] Blood Venous blood specimen / Unknown Venipuncture / Unknown 02/20/2025 4:04 PM EDT 02/20/2025 4:04 PM EDT Refugio BASSETT LAB BLOOD ORDERABLES Yanna l Result [facility] [address] [place] [address], * External Colonoscopy Report (02/07/2024 12:00 AM EDT) Anatomical Region Laterality Modality Endoscopy Historical Provider GI~PROCEDURE ORDERABLES E dited Result - Final * HIV Screening (11/07/2023) HIV Screening abstracted Historical Provider HEALTH MAINTENANCE Final Result * Hepatitis C Screening (11/07/2023) Hepatitis C Screening abstracted Historical Provider HEALTH MAINTENANCE Final Result from Last 3 Months or Most Recently Relevant to Health Maintenance Insurance [facility] Care Teams Metal Casket Assembler Relationship Specialty Start Date End Date Refugio Estrella PA [address] [place] [place] [address] PCP - General Internal Medicine 04/27/20
--- OUTSIDE RECORDS SUMMARY | 2025-07-03 15:47 | XMS_ITS | Encounter Summary ---
Author Organization [facility] Address [address] [facility] [address] [place] [address] Phone Care Team Providers Care Topper Press Operator Automatic Name Role Phone Refugio Estrella Primary Care Provid er Encounter Details Date Type Department Care Team (Late st Contact Info) Description 05/24/2023 Procedure Pass [facility], Ct Scan - [address] [address] Social History Tobacco Use Types Packs/Day Years [...] with a working camera? Not on file Sex and Gender Information Value Date Recorded Sex Assigned at Male 05/24/2023 6:50 PM EDT Legal Sex Male 9:26 PM EDT Gender Identity Male 05/24/2023 6:50 PM EDT Sexual Orientation Straight 05/24/2023 6: 50 PM EDT documented as of this encounter Functional Status * Calculated C-SSRS Risk Score (Lifetime/Recent) Answer Date of Assessment Author Moderate Risk 05/25/2023 1:00 AM EDT Jeff Pearson RN * [place] Suicide Severity Rating Scale (Screener/Recent Self-Report) Question Answer Date of Assessment Author 1. Wish to be (Past 1 Month) No 023 1:00 AM EDT Fern Pearson RN 2. Non-Specific Active Suici kera Thoughts (Past 1 Month) No 05/25/2023 1:00 AM EDT Fern Pearson RN 6. Suicidal Behavior (Lifetime) Yes 3 1:00 AM EDT Fern Pearson RN 6. Suicidal Behavior (3 Months) No 3 1:00 AM EDT Fern Pearson RN documented as of this encounter Plan of Treatment Not on file documented as of this encounter Visit Diagnoses Not on filedocumented in this encounter Additional Health Concerns Infection Onset Date Last Indicated Resolved Time CoV-Risk Comment:Per note documentation 05/24/2023 05/24/2023 3 8:26 AM EDT documented as of this encounter Care Teams Topper Press Operator Automatic Relationship Specialty Start Date End Date Refugio Estrella PA [address] [place] [address] PCP - General Unknown Provider Specialty 07/15/21 documented as of this encounter Additional Source Comments The information contained in this document represents components of the legal health record. It is not the complete legal health record.[facility]
--- OUTSIDE RECORDS SUMMARY | 2025-07-03 15:47 | XMS_ITS | Encounter Summary ---
Author Organization [facility] Address [address] [facility] [address] [place] [address] Phone Care Team Providers Care Research Intern Name Role Phone Refugio Estrella Primary Care Provid er Encounter Details Date Type Department Care Team (Late st Contact Info) Description 06/04/2023 Transcribe Orders [facility] Specimen Processing [address] [place] [address] Refugio Etsrella PA [address] [place] [address] Social History Tobacco Use Types Packs/Day Years [...] Diagnoses Not on filedocumented in this encounter Care Teams Research Intern Relationship Specialty Start Date End Date Refugio Estrella PA [address] [place] [address] PCP - General Unknown Provider Specialty 07/15/21 documented as of this encounter Additional Source Comments The information contained in this document represents components of the legal health record. It is not the complete legal health record.[facility]
== END 2025-07-03 15:45 | disposition home or self-care (01) ==
LOC: HO.US 15:44
PROVIDERS: PCP Physician Assistant Medical; Visit Provider Urology
DX: N50.811 Right testicular pain (principal); N50.812 Left testicular pain; K46.9 Unspecified abdominal hernia without obstruction or gangrene
CPT/HCPCS: 93975

== ENCOUNTER → 2025-07-03 15:46 | Outpatient (BNV) | payer OTHER, SELFPAY | PROVIDERS: PCP Physician Assistant Medical; Visit Provider Radiology Diagnostic Radiology | DX: N50.819 Testicular pain, unspecified (principal) | CPT/HCPCS: 93975 ==

== ENCOUNTER 2025-07-17 07:25 | Outpatient (AMB) | payer OTHER, SELFPAY ==
--- NOTE | 2025-07-17 07:27 | A.OFFVIS_ITS ---
Intake Visit Reasons: 8w/US (dial 2nd # for tele) Search Engineer Required: No Allergies shellfish derived Allergy (Mild, Verified 07/17/25 07:28) Anaphylaxis shrimp Allergy (Mild, Verified 07/17/25 07:28) Swelling Medication List - Last Reconciled 07/17/25 by Denise Cunningham MD albuterol sulfate 90 mcg/actuation (Ventolin HFA) 2 puffs inhalation Q4-6H PRN escitalopram oxalate 10 mg (2 x 5 mg) PO DAILY loratadine 10 mg PO DAILY HPI Comments Details: 07/17/25--Brent is a 49-year-old male who was initially evaluated on 05/14/2025 for testicular pain, he was empiracally placed on antibiotics, he was sent for a scrotal ultrasound review of scrotal ultrasound done on 07/03/2025 both testicles are normal and good Doppler flow. History of Present Illness The patient is a 50-year-old male presenting with testicular pain. The pain was initially evaluated on May 14, 2025, leading to antibiotic treatment. Despite treatment, the pain persisted, and a scrotal ultrasound on July 03, 2025, showed normal testicles with good Doppler flow. A small cyst was noted on the right epididymis, is clinically not significantl. The patient reports the pain is more pronounced in the right testicle, although there was an episode of severe pain in the left testicle about a month and a half ago. The patient has a history of an appendectomy approximately 20 years ago, which involved extensive abdominal surgery. He has experienced stomach muscle cramping since the surgery, but no prior surgeries in the testicular area. A general surgeon suspects a possible inguinal hernia, particularly on the right side, and is attempting to obtain insurance approval for a CT scan. The patient's symptoms are unchanged after completing antibiotics, and urine c/s sent 05/14/25 was no growth. I have discussed that there is no testicular abnormality or infection based on US. Per patient pain started after an activity at work in which he denies trauma to the testicle. He may have referred pain from a groin/ligament strain or hernia which is being evaluated by general surgery. FU prn Results - Scrotal ultrasound on 07/03/25: Normal testicles, good Doppler flow, small epididymal cyst Plan 1. Testicular Pain - Continue conservative management with supportive measures such as Tylenol and heating pads. - Follow-up with general surgery for further evaluation of possible inguinal hernia. 2. Epididymal Cyst - No intervention required 05/14/25-- Brent is a 49-year-old male who is here with complaints of testicular pain. 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 Since then he has had follow-up ultrasound in was not informed of any abnormalities found in the testicles. Currently it is the right testicle that is bothering him but it has been both at different times. He is also following with the general surgeon who has informed him that he has bilateral inguinal hernias left greater than right and he is scheduled to have a CT of the pelvis Examination today-right testicle is tender to palpation no tenderness along the cord. PFSH Medical History Primary insomnia Panic disorder with agoraphobia and mild panic attacks Hyperlipidemia Depression Chronic urticaria Morbid obesity Decreased libido Asthma Appendicitis Anxiety Alcohol abuse Review of Systems Const All systems reviewed & are unremarkable except as noted in HPI and below Reports no additional complaints Eyes Reports no additional complaints ENT Reports no additional complaints Card Reports no additional complaints Resp Reports no additional complaints GI Reports no additional complaints Reports as per HPI Musc Reports no additional complaints Skin/Breast Reports system reviewed and no additional complaints, except as documented Neuro Reports no additional complaints Psych Reports no additional complaints Endo Reports no additional complaints Sg/Lymph Reports no additional complaints Aller/Immun Reports no additional complaints Telehealth Telehealth Telehealth Platform: [employer] Location of provider rendering services: practice address Location of patient: address on file Patient Identification confirmed using: Name, : Yes Telehealth method: video Patient verbally consented to treatment: Yes Patient verbally consented to billing insurance company: Yes Patient informed of any privacy concerns related to visit: Yes Results Reviewed Results Reviewed: Date of Service: 07/03/25 US SCROTUM CLINICAL INFORMATION: Right testicular pain COMPARISON: None available. TECHNIQUE: A sonogram of the scrotum was performed assessing zepeda-scale appearance and color Doppler flow. Spectral Doppler analysis of the arterial and venous flow were performed in the testes bilaterally. FINDINGS: RIGHT: Right testicle measures 4.3 x 3 2.0 x 2.9 cm, volume 13 mL. No focal testicular parenchymal lesions are visualized. Spectral Doppler analysis of the arterial and venous flow is normal in the right testis. Incidental finding of right rete testis. Right epididymal head is normal in size. There is a small) epididymal head cysts measuring 0.2 x 0.14 x 0.2 cm No right hydrocele or varicocele is seen. Right epididymal Doppler flow is normal. LEFT: Left testicle measures 3.8 x 2.1 x 2.9 cm, volume 12 mL. No focal testicular parenchymal lesions are visualized. Spectral Doppler analysis of the arterial and venous flow is normal in the left testis. Left epididymal head is normal in size. No left hydrocele. Prominent left dilated scrotal vessels question varicocele Left epididymal Doppler flow is normal. IMPRESSION: Small right epididymal head cyst. Other findings as above Assessment & Plan Assessment & Plan (1) Pain in both testicles: Code(s): N50.811 - Right testicular pain; N50.812 - Left testicular pain Category: Medical (2) Hernia: Comment: possible inguinal hernia, patient following with general surgery Code(s): K46.9 - Unspecified abdominal hernia without obstruction or gangrene Category: Medical Plan Plan 1. Testicular Pain - Continue conservative management with supportive measures such as Tylenol and heating pads. - Follow-up with general surgery for further evaluation of possible inguinal hernia. 2. Epididymal Cyst - No intervention required Medications: Discontinued amoxicillin-pot clavulanate 875-125 mg Discontinued Reason: Patient Completed Course 1 tab PO BID 10 days 20 tabs 0RF Patient Instructions: The patient had an opportunity to ask questions regarding treatment plan. The patient expressed understanding and agreement with the above treatment plan. The patient is aware they should contact our office by phone for worsening of their current condition or the appearance of new symptoms. Compliance is encouraged with any medications and followup testing that is ordered. It is a privilege to be allowed the opportunity to participate in the urologic care of your patient. If you have any questions or concerns regarding treatment for the above conditions please do not hesitate to contact me. The office telephone contact is [phone]. This note is constructed in part using voice recognition software. While every effort has been made to ensure accuracy mercury purifier errors may have been included. Yours sincerely, Denise Cunningham MD Scribe Plan - Not visible on output: Patient was informed and verbally consented to the use of an ambient scribe for clinic note documentation during this visit. Coding Level of Care Code Tele Est Pt Level 3 (41229) Diagnoses Pain in both testicles N50.811; N50.812 Hernia K46.9
--- OUTSIDE RECORDS SUMMARY | 2025-07-17 07:28 | XMS_ITS | Encounter Summary ---
Author Organization [facility] Address [address] [address] Phone Care Team Providers Care Forge Operator Name Role Phone Refugio Estrella Primary Care Provid er Reason for Referral * Physical Therapy (Within 3 days (urgent)) - Closed Specialty Diagnoses / Procedures Referred By Edwina hwang Referred To Contact Physical Therapy Diagnoses Encounter for rehabilitation M75.122 Nontraumatic complete tear of left rotator cuff Procedures evaluate & treat Toño Contreras MD [address] [place] [address] Phone: tel: fax: [facility] [address] [place] [address] Phone: tel: Referral ID Status Reason Start Date Expiration Date Visits Re quested Visits Authorized [id number] Closed 08/11/2021 11/23/2021 26 26 Encounter Details Date Type Department Care Team (Latest Contact Info) Description 07/21/2021 Transcribe Orders [facility] [address] [place] [address] Toño Contreras MD [address] [place] [id number] Encounter for rehabilitation (Primary Dx) Social History [...] Date/Time Associated Diagnosis Comments AMB REFERRAL TO [facility] PHYSICAL THERAPY Routine 08/17/2021 12:57 PM EDT Encounter for rehabilitation documented in this encounter Results * Ambulatory referral to [facility] Physical Therapy (08/17/2021 12:57 PM EDT) Other us Toño Contreras MD AMB [facility] REFERRALS Final R esult documented in this encounter Visit Diagnoses Diagnosis Encounter for rehabilitation- Primary documented in this encounter Additional Health Concerns Infection Onset Date Last Indicated Resolved Time CoV-Risk 09/14/2022 09/14/2022 09/25/2022 1:22 AM EST CoV-Risk Comment:Per note documentation 05/24/2023 05/24/2023 8:26 AM EDT documented as of this encounter Care Teams Forge Operator Relationship Specialty Start Date End Date Refugio Estrella PA [address] [place] [address] PCP - General Unknown Provider Specialty 07/15/21 documented as of this encounter Additional Source Comments The information contained in this document represents components of the legal health record. It is not the complete legal health record.[facility]
--- OUTSIDE RECORDS SUMMARY | 2025-07-17 07:28 | XMS_ITS | Clinical Summary ---
Author Organization [facility] Address [address] [address] Phone Care Team Providers Care Legal Transcriber Name Role Phone Refugio Estrella Primary Care [...] PM EDT) HCV NON-REACTIV E NON-REACTI VE [facility] Blood 02/06/2024 5:16 PM EDT 02/06/2024 5:19 PM EDT us Brent Carmona MD LAB BLOOD ORDERABLES Final Res ult Performing Organization Address City/State/[facility] Co de Phone Number [facility] [address] [place] [address] from Last 3 Months or Most Recently Relevant to Health Maintenance Insurance [facility] [employer] NET PARTIAL [employer] EXPLORER POS HEALTH [facility] NET PARTIAL HPHC EXPLORER POS HPHC EXPLORER POS HC EXPLORER POS HEALTH SAFETY NET PARTIAL HC EXPLORER POS [facility] HEALTH SAFETY NET PARTIAL [facility] [employer] POS HEALTH SAFETY NET PARTIAL HPHC EXPLORER POS [facility] SAFETY NET PARTIAL Advance Directives For more information, please contact: [phone] (9AM - 5PM Sujey/[facility], Sunday-Sunday) * Full Code (Latest Code Status on File) Date Activated Date Inactivated Comments 05/25/2023 1:20 AM Question Answer Comments Code Status Confirmed With: Patient Care Teams Legal Transcriber Relationship Specialty Start Date End Date Refugio Estrella PA [address] [place] [id number] PCP - General Unknown Provider Specialty 07/15/21 Additional Source Comments The information contained in this document represents components of the legal health record. It is not the complete legal health record.[facility]
--- OUTSIDE RECORDS SUMMARY | 2025-07-17 07:28 | XMS_ITS | Encounter Summary ---
Author Organization [facility] Address [address] [place] [address] Care Team Providers Care Engine Maintenance Mechanic Name Role Phone Refugio Estrella Primary Care Provider [phone] Reason for Visit * Reason Onset Date Comments Forms/questionnaires 06/30/2025 Encounter Details Date Type Department Care Team ([facility] st Contact Info) Description 06/30/2025 Telephone General Surgery - [place] [address] [facility] [address] [place] [phone] Gonzalo De La Cruz, DO [address] [facility] [address] [place] [address] Social History Tobacco Use Types Packs/Day Years [...] for your loved ones. For example, child watch attendant or elderly care for an older adult? 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 De La Cruz. * Carola Ortiz - 07/08/2025 11:57 AM EDT I left message to have him call me back. * Gonzalo De La Cruz DO - [...] Care Team (Late st Contact Info) Description 07/22/2025 4:00 PM EDT Office Visit General Surgery - [place] [address] [facility] [address] [place] [phone] Gonzalo De La Cruz DO 175 [facility] [address] [place] [address] 08/18/2025 1:30 PM EDT Consult Bariatric Surgery - [place] [address] [facility] [address] [place] [phone] Mikayla Sales PA [address] [place] [phone] 08/25/2025 3:30 PM EDT Office Visit Adult Medicine [phone] [place] [phone] Refugio Estrella PA [address] [place] [phone] 10/06/2025 12:30 PM EST Ancillary Procedure [facility] [address] [facility] [address] [place] [phone] documented as of this encounter Visit Diagnoses Not on filedocumented in this encounter Additional Health Concerns Assessment Noted Time PHQ-9 Depression Total Score: 0 02/21/20 25 2:59 PM EDT documented as of this encounter Care Teams Engine Maintenance Mechanic Relationship Specialty Start Date End Date Refugio Estrella PA [address] [place] [address] PCP - General Internal Medicine 04/27/20 documented as of this encounter
--- OUTSIDE RECORDS SUMMARY | 2025-07-17 07:28 | XMS_ITS | Encounter Summary ---
Author Organization [facility] Address [address] [facility] [address] [place] [address] Phone Care Team Providers Care Communication Lecturer Name Role Phone Refugio Estrella Primary Care Provid er Encounter Details Date Type Department Care Team (Late st Contact Info) Description 06/04/2023 Transcribe Orders [facility] Specimen Processing [address] [place] [address] Refugio Estrella PA [address] [place] [address] Social History Tobacco Use Types Packs/Day Years [...] on filedocumented in this encounter Care Teams Communication Lecturer Relationship Specialty Start Date End Date Refugio Estrella PA [address] [place] [address] PCP - General Unknown Provider Specialty 07/15/21 documented as of this encounter Additional Source Comments The information contained in this document represents components of the legal health record. It is not the complete legal health record.[facility]
--- OUTSIDE RECORDS SUMMARY | 2025-07-17 07:28 | XMS_ITS | Encounter Summary ---
Author Organization [facility] Address [address] [facility] [address] [place] [address] Phone Care Team Providers Care Engineer Technical Staff Name Role Phone Refugio Estrella Primary Care Provid er Encounter Details Date Type Department Care Team (Late st Contact Info) Description 05/24/2023 Procedure Pass [facility], Ct Scan - [address] [address] Social History Tobacco Use Types Packs/Day Years [...] 1:00 AM EDT Jeff Pearson RN * [place] Suicide Severity Rating Scale (Screener/Recent Self-Report) Question [...] documented as of this encounter Care Teams Engineer Technical Staff Relationship Specialty Start Date End Date Refugio Estrella PA [address] [place] [address] PCP - General Unknown Provider Specialty 07/15/21 documented as of this encounter Additional Source Comments The information contained in this document represents components of the legal health record. It is not the complete legal health record.[facility]
--- OUTSIDE RECORDS SUMMARY | 2025-07-17 07:28 | XMS_ITS | Clinical Summary ---
Author Organization [facility] Address [address] [place] [address] Phone Care Team Providers Care Lead Business Analyst Name Role Phone Refugio Estrella Primary Care Provider [phone] Allergies Active Allergy Reactions Criticality Noted Date [...] tablet 3 02/05/20 25 Active albuterol HFA (PROAIR HFA ; PROVENTIL HFA ; VENTOLIN HFA) 90 mcg/actuation inhaler INHALE 2 PUFFS INTO THE LUNGS EVERY 4 HOURS NEEDED FOR COUGH OR WHEEZING. 6.7 each 3 07/06/20 25 Active phentermine 30 mg capsuleIndicati ons:Routine general medical examination at a health care facility,Morbid obesity (CMS/HCC V24, CMS/HCC V28),Other depression,Anxi ety,Other hyperlipidemia, Panic disorder with agoraphobia and mild panic attacks,Vasovag al syncope Take 1 capsule (30 mg total) by mouth 1 (one) time each day before breakfast. Max Daily Amount: 30 mg 30 each 2 07/03/20 25 Active albuterol HFA (ProAir HFA) 90 mcg/actuation inhaler Inhale 2 Puffs into the lungs every 4 hours as needed for Cough or Wheezing. 6.7 g 3 02/21/20 25 025 Discontinued semaglutide (Wegovy) 0.25 mg/0.5 mL injection pen Inject 0.25 mg under the skin every 7 (seven) days. BMI 41.19 6 mL 3 03/02/20 25 025 Discontinued(Pa sobiant Discharge) furosemide (LASIX) 20 mg tablet Take 1 tablet (20 mg total) by mouth 1 (one) time each day if needed (leg swelling). 30 each 5 03/19/20 25 025 Discontinued(Pa delia Discharge) phentermine 15 mg capsule Take 1 [...] 03/15/2020 Anxiety 03/28/2019 Depression 03/05/2019 Morbid obesity ([facility] V24, [facility] V28) 2018 Chronic urticaria 08/23/2017 Hyperlipidemia 05/28/2015 Overview (09/24/2024): LDL cholesterol 282, 11/26/2007 Panic disorder with agoraphobia and mild panic a ttacks 07/07/2011 Asthma 07/31/2008 Appendicitis 12/06/2005 Overview (09/24/2024): IMO update Encounters Date Type Department Care Team Description 07/03/2025 1:30 PM EDT Office Visit Adult Medicine [address] [phone] Refugio Estrella PA Other hyperlipidemia (Primary Dx); Routine general medical examination at a health care facility; Morbid obesity (CMS/HCC V24, CMS/HCC V28); Other depression; Anxiety; Panic disorder with agoraphobia and mild panic attacks; Vasovagal syncope 06/30/2025 Telephone General Surgery [facility] [address] [phone] Gonzalo Pollock DO 05/12/2025 4:15 PM EDT Consult General Surgery [facility] [address] [phone] Gonzalo Pollock, DO Generalized abdominal pain [...] Surgery Date Site/Laterality Comments APPENDECTOMY 10/29/2001 PROCEDURE: NM APPENDECTOMY; COMMENT: status post ruptured appendix TONSILLECTOMY PROCEDURE: HISTORICAL TONSILLECTOMY OTHER SURGICAL HISTORY 10/29/1995 PROCEDURE: EXCISION BENIGN LESION COMPL; COMMENT: neck OTHER SURGICAL HISTORY 10/29/1999 PROCEDURE: NM CIRCUMCISION AGE >28 DAYS KNEE SURGERY Left [...] your loved ones. For example, child care centre director or elderly care for an older adult? 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 on file Not on file [...] PM EDT Office Visit General Surgery - [place] [facility] [address] [place] [phone] Gonzalo Pollock, 175 [facility] [address] [place] [address] 08/18/2025 1:30 PM EDT Consult Bariatric Surgery - [place] [facility] [address] [place] [phone] Mikayla Saels PA [address] [place] [phone] 08/25/2025 3:30 PM EDT Office Visit Adult Medicine [facility] [address] [place] [phone] Refugio Estrella, PA [address] [place] [phone] 10/06/2025 12:30 PM EST Ancillary Procedure [facility] [address] [facility] [address] [place] [phone] Health Maintenance Due Date Last Done Comments [...] Additional history exists Influenza Vaccine (#1) 2025 4, 07/06/2023, 08/29/2020, Additional history exists Social Influencers of Health Screening 02/20/2026 02/20/2025 Cholesterol Screening (Lipid Panel) 02/20/2030 02/20/2025, 07/06/2023 DTaP,Tdap,and Td Vaccines (5 - Td or Tdap) 01/03/2033 01/03/2023, 11/29/2012, 03/07/2006, Additional history exists Colorectal Cancer Screening: Colonoscopy 02/06/2034 02/07/2024 RSV Immunization Adult Patients (1 - 1-dose 75+ series) 2052 HIV Screening Completed 11/07/2023 Hepatitis C Screening [...] Name Priority Date/Time Associated Diagnosis Comments EXTERNAL ULTRASOUND REPORT 07/03/2025 EXTERNAL ULTRASOUND REPORT 07/03/2025 EXTERNAL CLINICAL LAB 05/14/2025 LIPID PANEL WITH REFLEX TO DIRECT LDL Routine 02/20/2025 4:04 PM EDT Routine general medical examination at a health care facility Syncope, unspecified syncope type Other hyperlipidemia Other depression Uncomplicated asthma, unspecified asthma severity, unspecified whether persistent Obesity without serious comorbidity, unspecified class, unspecified obesity type EXTERNAL COLONOSCOPY REPORT Routine 02/07/2024 12:00 AM EDT HEPATITIS C SCREENING Routine 11/07/2023 HIV SCREENING Routine 11/07/2023 from Last 3 Months or Most Recently Relevant to Health Maintenance Results * External Ultrasound Report (07/03/2025) Only the most recent of2 resultswithin the time period is included. Anatomical Region Laterality Modality Ultrasound Provider [facility] PROCEDURES Final Result * External clinical lab (05/14/2025) Provider [facility] LAB BLOOD ORDERABLES Fin al Result * (ABNORMAL) Lipid panel with reflex to direct LDL (02/20/2025 4:04 PM EDT) Cholesterol 172 0 - 200 mg/dL LAB CHEMISTRY METHOD 02/20/2025 6:39 PM EDT [facility] Triglycerides 327(H) 0 - 150 mg/dL LAB CHEMISTRY METHOD 02/20/2025 6:39 PM EDT [facility] HDL 47 >=40 mg/dL LAB CHEMISTRY METHOD 02/20/2025 6:39 PM EDT [facility] LDL Calculated 60 0 - 100 mg/dL LAB CHEMISTRY METHOD 02/20/2025 6:39 PM [facility] VLDL Cholesterol Donte 65.4 mg/dL LAB CHE[facility]STRY [facility] Non HDL Chol. (LDL+VLDL) 125 <145 mg/dL LAB CHEMISTRY METHOD 02/20/2025 6:39 PM EDT [facility] Chol/HDL Ratio 3.7 0.0 - 4.4 LAB CHEMISTRY METHOD 02/20/2025 6:39 PM [facility] Blood Venous blood specimen / Unknown Venipuncture / Unknown 02/20/2025 4:04 PM EDT 02/20/2025 4:04 PM EDT Refugio BASSETT LAB BLOOD ORDERABLES Yanna l Result [facility] [address] [place] [address], * External Colonoscopy Report (02/07/2024 12:00 AM EDT) Anatomical Region Laterality Modality Endoscopy Historical Provider GI~PROCEDURE ORDERABLES E dited Result - Final * HIV Screening (11/07/2023) HIV Screening abstracted Historical Provider HEALTH MAINTENANCE Final Result * Hepatitis C Screening (11/07/2023) Hepatitis C Screening abstracted Historical Provider HEALTH MAINTENANCE Final Result from Last 3 Months or Most Recently Relevant to Health Maintenance Insurance [facility] Care Teams Lead Business Analyst Relationship Specialty Start Date End Date Refugio Estrella PA [address] [place] [address] PCP - General Internal Medicine 04/27/20
== END 2025-07-17 16:49 | disposition home or self-care (01) ==
LOC: HO.HUSH 07:25
PROVIDERS: PCP Physician Assistant Medical; Visit Provider Urology
DX: N50.811 Right testicular pain (principal); N50.812 Left testicular pain; K46.9 Unspecified abdominal hernia without obstruction or gangrene
CPT/HCPCS: 98004